=== PATIENT | male | born 1960 | race Caucasian/White ===

== ENCOUNTER 2024-04-04 19:43 | Emergency (ER) | payer OTHER, SELFPAY ==
[2024-04-04 19:48] VITALS: BP 169/106; PULSE 77; RESP 16; TEMP 36.4; O2SAT 98
[2024-04-04 22:45] VITALS: BP 180/110; PULSE 66; RESP 16; O2SAT 98
[2024-04-04 23:35] VITALS: RESP 18; O2SAT 99
[2024-04-04 23:37] VITALS: BP 173/97; PULSE 61; RESP 18; O2SAT 97
--- NOTE | 2024-04-04 23:38 | ED.RECABL ---
HPI - Recheck/Abnormal Lab/Rx General Chief Complaint: Recheck/Abnormal Lab/Rx Stated Complaint: high bp Time Seen by Provider: 04/04/24 23:23 History of Present Illness HPI narrative: 64-year-old male with history of hypertension and hyperlipidemia presents to the emergency department for hypertension. Patient states he was lying on the couch today when he began feeling funny. States he had a headache so he got up and took his blood pressure. States it was 193/110, this was concerning to him so he came to the ED for further evaluation. He states he has been taking his blood pressure twice daily and is scheduled to follow-up with his PCP at the end of the month regarding possible blood pressure medication changes. States his blood pressure is normally 170s/90s. He is on 10 mg of enalapril once daily and 25 mg of hydrochlorothiazide once daily. He has been taking these as directed. States he feels fine now. He has no headache, vision changes, focal numbness or weakness, chest pain or shortness of breath, lightheadedness or dizziness, cough or congestion. States he feels his baseline. Related Data Allergies Allergy/AdvReac Type Severity Reaction Status Date / Time No Known Allergies Allergy Verified 04/04/24 19:45 Review of Systems Review of Systems: All systems reviewed & are unremarkable except as noted in HPI and below Exam Narrative: GENERAL: Well-appearing, well-nourished, and in no acute distress. HEAD: Normocephalic, atraumatic. EYES: PERRLA and EOMI. ENT: Nares clear, no rhinorrhea or epistaxis. Mucous membranes moist. NECK: Supple. CHEST: Clear to auscultation. No respiratory distress. HEART: Regular rate and rhythm. No murmur heard. Normal peripheral pulses. ABDOMEN: Soft, nontender, nondistended, normal active bowel sounds. EXTREMITIES: Normal range of motion. No edema. SKIN: Warm, dry, no rash. NEURO: No focal deficits. Alert and oriented x3 Cranial nerves 2-12 intact. Strength 5/5 in BUE and BLE. Sensation intact throughout. Normal [id number]. No pronator drift. Course Vital Signs Vital signs: Vital Signs Temperature 97.6 F 04/04/24 19:48 Pulse Rate 77 04/04/24 19:48 Respiratory Rate 16 04/04/24 19:48 Blood Pressure 169/106 H 04/04/24 19:48 Pulse Oximetry 98 04/04/24 19:48 Oxygen Delivery Room Air 04/04/24 19:48 Temperature 97.6 F 04/04/24 19:48 Pulse Rate 66 04/04/24 22:45 Respiratory Rate 18 04/04/24 23:35 Blood Pressure 180/110 H 04/04/24 22:45 Pulse Oximetry 99 04/04/24 23:35 Oxygen Delivery Room Air 04/04/24 19:48 MDM - Recheck/Abnormal Lab/Rx MDM Narrative Medical decision making narrative: 64-year-old male with history of hypertension and hyperlipidemia presents to the emergency department for an elevated blood pressure reading today. Triage vital significant for hypertension of 169/106, otherwise unremarkable. Patient states when he checked his blood pressure at home today it was 193/110. States he checked his blood pressure because he had a headache and is feeling funny . Upon my evaluation of the patient he is completely asymptomatic. He denies current headache, vision changes, focal numbness or weakness, chest pain or shortness of breath, lightheadedness or dizziness. He has been taking his medications as directed and states he has not missed any doses. His blood pressure is now 173/97 which is his reported baseline. He is educated on asymptomatic hypertension and advised to follow-up closely with his PCP. Encouraged him to continue taking his medications as directed and to continue his blood pressure log. I discussed strict ED return precautions including signs hypertensive emergency and end-organ dysfunction. He is agreeable to plan verbalized understanding. Discharged in stable condition. Discharge Plan Discharge Clinical Impression: Asymptomatic hypertension Patient Disposition: Home, Self-Care Condition: Stab
== END 2024-04-05 00:15 | disposition home or self-care (01) ==
LOC: ANHED 04-05 00:08
PROVIDERS: Emergency Provider Physician Assistant
DX: I10 Essential (primary) hypertension (principal); E78.5 Hyperlipidemia, unspecified
CPT/HCPCS: 99281